=== PATIENT | male | born 1945 | race Caucasian/White ===

== ENCOUNTER 2020-04-23 10:11 | Outpatient (CLI) | payer MEDICARE, OTHER, SELFPAY ==
--- NOTE | ~2020-04-23 | XR_ITS ---
EXAMINATION: XR chest 2V DATE: 04/23/2020 10:55 INDICATION: Chest pain TECHNIQUE: PA and lateral views of the chest were obtained. COMPARISON: Chest radiograph dated 05/09/2019 FINDINGS: Minimal left basilar atelectasis. No other airspace opacities, pulmonary edema, pleural effusion or p neumothorax. The cardiomediastinal silhouette is normal. Visualized bones and soft tissues are unrema rkable. IMPRESSION: 1. Minimal left basilar atelectasis. Reviewed, dictated and finalized at location A.
[2020-04-23 10:29] LABS: Basophils Absolute Auto 0.07 K/mm3 (0.00-0.10); Basophils Percent Auto 0.9 % (0.0-1.0); Eosinophils Absolute Auto 0.68 K/mm3 (0.02-0.50); Eosinophils Percent Auto 9.1 % (1.0-6.0); Hematocrit 42.1 % (37.0-46.0); Hemoglobin 13.8 g/dL (12.4-15.3); Immature Granulocyte Absolute 0.03 K/mm3 (0.00-0.00); Immature Granulocyte Percent A 0.4 % (0.0-0.0); Lymphocytes Percent Auto 22.8 % (18.0-42.0); Mean Corpuscular HGB Conc 32.8 g/dL (32.0-36.0); Mean Corpuscular Hemoglobin 30.1 pg (27.0-31.0); Mean Corpuscular Volume 91.9 fL (78.0-102.0); Mean Platelet Volume 9.5 fl (8.7-11.0); Monocytes Absolute Auto 0.59 K/mm3 (0.10-0.90); Monocytes Percent Auto 7.9 % (2.0-11.0); Neutrophils Absolute Auto 4.4 K/mm3 (1.7-7.2); Neutrophils Percent Auto 58.9 % (50.0-70.0); Platelet Count Result 199 K/mm3 (150-420); Red Blood Count 4.58 M/mm3 (4.70-6.10); White Blood Count 7.5 K/mm3 (4.8-10.8)
[2020-04-23 10:55] LABS: Alanine Aminotransferase 29 U/L (16-63); Albumin Level 3.6 g/dL (3.4-5.0); Alkaline Phosphatase 106 U/L (46-116); Anion Gap 11.3 mmol/L (7-16); Aspartate Amino Transferase 20 U/L (15-37); Bilirubin,Total 0.4 mg/dL (0.00-1.00); Blood Urea Nitrogen 16 mg/dL (7-18); Calcium 8.8 mg/dL (8.5-10.1); Carbon Dioxide 29 mmol/L (21-32); Chloride 104 mmol/L (98-108); Creatine Kinase 89 U/L (39-308); Estimated Glomerular Filt Rate > 60; Glucose 193 mg/dL (70-99); Osmolality Calculated 296 mOsm/kg (285-295); Potassium 4.3 mmol/L (3.5-5.1); Sodium 140 mmol/L (136-145); Total Protein 8.1 g/dL (6.4-8.2)
[2020-04-23 11:00] LABS: Troponin I < 0.02 ng/mL (0.00-0.056)
== END 2020-04-23 10:12 | disposition home or self-care (01) ==
PROVIDERS: PCP Family Medicine; Visit Provider Family Medicine
DX: R07.89 Other chest pain (principal)
CPT/HCPCS: 36415; 71046; 80053; 82550; 82553; 84484; 85025

== ENCOUNTER 2020-07-22 07:59 | Outpatient (CLI) | payer MEDICARE, OTHER, SELFPAY ==
--- NOTE | ~2020-07-22 | US_ITS ---
EXAMINATION: US carotid duplex BI DATE: 07/22/2020 09:41 INDICATION: Subjective visual disturbance with floaters in the right eye. TECHNIQUE: Grayscale, color Doppler, and pulsed Doppler images of the cervical carotid arteries were obtained. The degree of vessel stenosis is placed in one of the following categories: normal, <50%, 5 0-69%, >=70% but less than near-occlusion, near-occlusion, or total occlusion. Note that percent sten osis relative to normal distal artery lumen diameter is indirectly measured from velocity measurement s as described by Kurt, et al. Radiology 2003; [id number]. COMPARISON: None. FINDINGS: RIGHT: The right common carotid artery (CCA) peak systolic velocity (PSV) is 122 cm/s. The right internal ca rotid artery (ICA) PSV is 123 cm/s. The right ICA end-diastolic velocity (EDV) is 23 cm/s. The right ICA/CCA PSV ratio is 1.0. Grayscale and color Doppler images yield an estimate of <50% diameter reduc tion from plaque in the ICA. The external carotid artery (ECA) PSV is 124 cm/s. There is antegrade fl ow in the right vertebral artery. LEFT: The left CCA PSV is 110 cm/s. The left ICA PSV is 108 cm/s. The left ICA EDV is 26 cm/s. The left ICA /CCA PSV ratio is 1.0. Grayscale and color Doppler images yield an estimate of <50% diameter reductio n from plaque in the ICA. The ECA PSV is 103 cm/s. There is antegrade flow in the left vertebral courtney ry. IMPRESSION: 1. <50% stenosis in the right internal carotid artery. 2. <50% stenosis in the left internal carotid artery. Reviewed, dictated and finalized at location B.
--- NOTE | ~2020-07-22 | US_ITS ---
EXAMINATION: US aorta [facility] DATE: 07/22/2020 09:41 INDICATION: Abdominal aortic aneurysm. TECHNIQUE: Grayscale, color Doppler, and pulsed Doppler images of the aorta and common iliac arteries were obtained. COMPARISON: None. FINDINGS: The proximal aorta measures 2.3 cm. The mid aorta measures 1.8 cm. The distal aorta measures 1.6 cm. The right common iliac artery measures 9 mm. The left common iliac artery measures 10 mm. IMPRESSION: 1. Normal caliber abdominal aorta. Reviewed, dictated and finalized at location B.
== END 2020-07-22 08:00 | disposition home or self-care (01) ==
LOC: CHSIMG 08:01
PROVIDERS: PCP Family Medicine; Visit Provider Internal Medicine Cardiovascular Disease
DX: Z13.6 Encounter for screening for cardiovascular disorders (principal); H53.9 Unspecified visual disturbance; E11.9 Type 2 diabetes mellitus without complications; Z87.891 Personal history of nicotine dependence; I10 Essential (primary) hypertension; I25.10 Atherosclerotic heart disease of native coronary artery without angina pectoris; E78.5 Hyperlipidemia, unspecified
CPT/HCPCS: 76706; 93880

== ENCOUNTER 2020-08-14 12:21 | Emergency (ER) | payer MEDICARE, OTHER, SELFPAY ==
--- NOTE | ~2020-08-14 | XR_ITS ---
EXAMINATION: XR wrist RT min 3V INDICATION: Right wrist pain TECHNIQUE: Four views of the right wrist are obtained. COMPARISON: None available FINDINGS: There is no fracture, dislocation, or subluxation. There is mild polyarticular osteoarthrit is. Wrist soft tissue swelling is present. IMPRESSION: 1. No acute osseous abnormality. Reviewed, dictated and finalized at location A. OR USER EXPERIENCE ARCHITECT
[2020-08-14 12:30] VITALS: BP 126/80; PULSE 77; RESP 14; TEMP 36.4; O2SAT 96
--- NOTE | 2020-08-14 12:47 | ED.UPPEXIN ---
HPI - Extremity Injury (Upper) General Chief Complaint: Extremity Injury, Upper Stated Complaint: fell and hurt R wrist Source: patient Mode of arrival: ambulatory Limitations: no limitations History of Present Illness HPI narrative: this is a 74-year-old gentleman that had a fall on an outstretched right hand and wrist that occurred yesterday has some abrasions to his palm and to his arm secondary to the fall, pain is minimal with with rest and more painful with movement has a strong brisk radial pulse on the right, has good range of motion although mildly tender with movement. Currently there is no swelling or bruising although there is abrasions of the right hand. complaint: injury to: right Onset (ago): day(s) Other Extremity Injury: Right: wrist ( Abrasions and pain with movement of his right wrist) Handedness: right Place: outdoors Severity: mild Severity scale (1-10): 4 Relieving factors: none Exacerbating factors: movement of extremity Context: fall Related Data Home Medications Medication Instructions Recorded Confirmed aspirin 81 mg PO EVERY OTHER DAY 08/14/20 08/14/20 atorvastatin 40 mg PO HS 08/14/20 08/14/20 finasteride 5 mg PO DAILY 08/14/20 08/14/20 losartan 12.5 mg PO DAILY 08/14/20 08/14/20 metformin 1,000 mg PO BID 08/14/20 08/14/20 omeprazole 20 mg PO DAILY 08/14/20 08/14/20 Allergies Allergy/AdvReac Type Severity Reaction Status Date / Time No Known Allergies Allergy Verified 08/14/20 12:49 Review of Systems Review of Systems: All systems reviewed & are unremarkable except as noted in HPI and below PMFSH Past Medical History Medical History Diabetes mellitus Family History Family History Other Diabetes mellitus Social History Social History Smoking status: Never smoker Alcohol intake: current Exam Const: General: no acute distress Orientation/consciousness: patient oriented x3 HENMT: Head: normal to inspection Eyes: Conjunctivae: conjunctivae normal Pupils: Equal, round and reactive pupils present Neck: Neck: normal visual inspection Chest: Chest palpation & inspection: normal inspection of the chest Resp: Effort & Inspection: normal respiratory effort Cardio: Rate: regular rate Rhythm: regular rhythm GI: GI Palp: Yes Soft to palpation : Testes: Testes normal Urinary Catheter: Urinary Catheter: patent and draining Back/Spine/Pelvis: Back: no CVA tenderness Skin: General skin exam: normal color Rashes: no rashes Neuro: General: patient oriented x3, moves all extremities, no meningeal signs and no focal motor deficits Extrem: Other: right wrist tender with movement and with palpation with a strong brisk radial pulse on the right with abrasions on his Psych: Mental Status: mental status grossly normal Course Course Emergency Course: reassessment of patient will update with tetanus vaccine, pain level is minimal at rest and declined any pain medication at this time. Vital Signs Vital signs: Vital Signs Temperature 36.4 C 08/14/20 12:30 Pulse Rate 77 08/14/20 12:30 Respiratory Rate 14 08/14/20 12:30 Blood Pressure 126/80 08/14/20 12:30 Pulse Oximetry 96 08/14/20 12:30 Temperature 36.4 C 08/14/20 12:30 Pulse Rate 77 08/14/20 12:30 Respiratory Rate 14 08/14/20 12:30 Blood Pressure 126/80 08/14/20 12:30 Pulse Oximetry 96 08/14/20 12:30 Critical Care Time Critical Care Time Critical Care Time: No Discharge Plan Discharge Prescriptions: No Action atorvastatin 40 mg tablet 40 mg PO HS RF: 0 metformin 500 mg tablet 1,000 mg PO BID RF: 0 aspirin 81 mg tablet,delayed release (DR/EC) 81 mg PO EVERY OTHER DAY RF: 0 losartan 25 mg tablet 12.5 mg PO DAILY RF: 0 omeprazole 20 mg capsule,delayed release(DR/EC)
[2020-08-14 12:50] VITALS: BP 126/80; PULSE 77; RESP 14; TEMP 36.4; O2SAT 96
--- NOTE | 2020-08-14 13:20 | PC.NURSE ---
PT REFUSING MITCH WRAP APPLICATION
[2020-08-14] MEDS: TETANUS,DIPHTHERIA,AC PERTUSSIS ADULT 0.5 ML (ADACEL) IM (13:27)
[2020-08-14 13:28] VITALS: RESP 15; O2SAT 100
== END 2020-08-14 13:29 | disposition home or self-care (01) ==
PROVIDERS: Emergency Provider Emergency Medicine; PCP Family Medicine
DX: S63.501A Unspecified sprain of right wrist, initial encounter (principal); W19.XXXA Unspecified fall, initial encounter
CPT/HCPCS: 73110; 90471; 90715; 99283

== ENCOUNTER 2021-05-03 11:31 | Outpatient (CLI) | payer MEDICARE, SELFPAY | END 2021-05-03 11:32 | disposition home or self-care (01) | LOC: CHSLAB 11:33 | PROVIDERS: PCP Family Medicine; Visit Provider Internal Medicine | DX: Z20.820 Contact with and (suspected) exposure to varicella (principal) | CPT/HCPCS: 36415; 86787 ==

== ENCOUNTER 2021-11-14 14:28 | Outpatient (CLI) | payer MEDICARE, OTHER, SELFPAY ==
--- NOTE | ~2021-11-14 | XR_ITS ---
EXAMINATION: XR hand RT min 3V DATE: 11/14/2021 14:51 INDICATION: Pain in the right fingers. TECHNIQUE: 3 views of right hand were obtained. COMPARISON: Right wrist radiographs 08/14/2020 FINDINGS: Bone alignment is normal. No fracture. There is mild osteoarthritis of triscaphe joint, fir st carpometacarpal joint, and third and fourth metacarpophalangeal joints. There is moderate osteoart hritis of first and second metacarpophalangeal joints. There is mild osteoarthritis of most of the in terphalangeal joints and moderate osteoarthritis of second distal interphalangeal joint. IMPRESSION: 1. Polyarticular osteoarthritis. Reviewed, dictated and finalized at location E. NCIAL CONSULTANT
== END 2021-11-14 14:29 | disposition home or self-care (01) ==
PROVIDERS: PCP Family Medicine; Visit Provider Family Medicine
DX: M79.644 Pain in right finger(s) (principal)
CPT/HCPCS: 73130

== ENCOUNTER 2022-05-01 00:42 | Day surgery (SDC) | payer MEDICARE, OTHER, SELFPAY ==
[2022-04-18 12:28] VITALS: BMI 23.6
--- NOTE | 2022-04-30 12:09 | P.HP_ITS ---
History of Present Illness History of Present Illness Consent: Risks, benefits, and alternatives have been discussed and questions answered. Patient agrees to proceed with procedure. Chief complaint: neoplasm screening Narrative: Denis Santana Sr. is a 76 year old male Who was referred for colon cancer screening. Review of Systems Review of Systems: All systems reviewed & are unremarkable except as noted in HPI and below PMFSH Past Medical History Medical History Diabetes mellitus HTN (hypertension) Hyperlipidemia Osteoarthritis Prostate CA Family History Family History Other Diabetes mellitus Social History Social History Smoking packs per day: 0.5 Smoking cigarettes per day: 10.0 Years smoked: 20 Smoking pack-years: 10.00 Smoking status: Former smoker Tobacco type: cigarettes Alcohol intake: never Substance use: never Substance use type: does not use Living arrangements: with family Spiritual care concerns: No Meds Home Medications and Allergies Home Medications Medication Instructions Recorded Confirmed Type aspirin 81 mg tablet,delayed 81 mg PO EVERY OTHER DAY 08/14/20 05/01/22 History release atorvastatin 40 mg tablet 40 mg PO HS 08/14/20 05/01/22 History finasteride 5 mg tablet 5 mg PO DAILY 08/14/20 05/01/22 History losartan 25 mg tablet 12.5 mg PO DAILY 08/14/20 05/01/22 History metformin 500 mg tablet 1,000 mg PO BID 08/14/20 05/01/22 History omeprazole 20 mg capsule,delayed 20 mg PO DAILY 08/14/20 05/01/22 History release Allergies Allergy/AdvReac Type Severity Reaction Status Date / Time No Known Allergies Allergy Verified 05/01/22 09:31 Exam Const: General: alert Orientation/consciousness: patient oriented x3 Resp: Auscultation: clear to auscultation bilaterally Cardio: Rhythm: regular rhythm GI: GI Palp: Yes Soft to palpation and No Tenderness to palpation present (GI) Neuro: General: patient oriented x3 Assessment and Plan Assessment and plan (1) Colon cancer screening: Code(s): Z12.11 - Encounter for screening for malignant neoplasm of colon Status: Acute Assessment and Plan: Colonoscopy with possible biopsy or polypectomy or cautery or injection of sub stances.
--- NOTE | 2022-05-01 09:13 | P.PNAN_ITS ---
Anes - Initial Pre Proc Eval Procedure: Operation Date: 05/01/22 10:30 Proposed Procedures p Screening Colonoscopy - Gaurav Chandler MD Date/Time: 05/01/22 09:13 Surgeon: Gaurav Chandler MD Pre Op Diagnosis: neoplasm screening Patient Data Age: 76 Gender: M Height: 1.75 m Weight: 72.5 kg Allergies Allergy/AdvReac Type Severity Reaction Status Date / Time No Known Allergies Allergy Verified 05/01/22 09:31 Home Medications Medication Instructions Recorded Confirmed Type aspirin 81 mg tablet,delayed 81 mg PO EVERY OTHER DAY 08/14/20 04/18/22 History release atorvastatin 40 mg tablet 40 mg PO HS 08/14/20 04/18/22 History finasteride 5 mg tablet 5 mg PO DAILY 08/14/20 04/18/22 History losartan 25 mg tablet 12.5 mg PO DAILY 08/14/20 04/18/22 History metformin 500 mg tablet 1,000 mg PO BID 08/14/20 04/18/22 History omeprazole 20 mg capsule,delayed 20 mg PO DAILY 08/14/20 04/18/22 History release Patient hx anesthesia problems: none Family hx anesthesia problems: none Results Review: All pre-operative results and documents have been reviewed as part of the pre- operative evaluation. [facility] Past Medical History Medical History (Updated 05/01/22 @ 09:13 by Romeo Zaman MD) Diabetes mellitus HTN (hypertension) Hyperlipidemia Osteoarthritis Prostate CA Family History Family History Other Diabetes mellitus Social History Social History Smoking packs per day: 0.5 Smoking cigarettes per day: 10.0 Years smoked: 20 Smoking pack-years: 10.00 Smoking status: Former smoker Tobacco type: cigarettes Alcohol intake: never Substance use: never Substance use type: does not use Living arrangements: with family Spiritual care concerns: No Anes - Eval Final PreProcedure Day of Procedure 05/01/22 09:13 Patient weight: normal Heart: regular rate and rhythm Lungs: clear to auscultation and normal air movement Airway: Mallampati scale class II Neurological: alert and oriented Last oral intake: >/= 8 hours ASA classification: III Emergent: no Anesthetic plan: proceed Anesthesia type and monitoring: general GIVS Results Review: All pre-operative results and documents have been reviewed as part of the pre- operative evaluation. Informed Consent: The patient's anesthetic plan and its attendant risks and benefits were discussed with the patient/family/POA. Questions were solicited and answers provided to the satisfaction of the patient/family/POA.
[2022-05-01 09:32] VITALS: BP 144/68; PULSE 60; RESP 18; TEMP 36.2; O2SAT 99
[2022-05-01] MEDS: LACTATED RINGERS 1,000 ML 150 ML IV CONT (09:42)
[2022-05-01 09:43] LABS: Glucose Point of Care 113 mg/dl (65-105)
[2022-05-01 10:40] VITALS: BP 116/75; PULSE 56; RESP 20; O2SAT 97
[2022-05-01 10:46] VITALS: BP 119/68; PULSE 56; RESP 20; O2SAT 100
[2022-05-01 10:56] VITALS: BP 125/71; PULSE 53; RESP 21; O2SAT 100
== END 2022-05-01 11:06 | disposition home or self-care (01) ==
PROVIDERS: PCP Family Medicine; Visit Provider Internal Medicine Gastroenterology
PROC: 0DJD8ZZ Inspection of Lower Intestinal Tract, Via Natural or Artificial Opening Endoscopic (ICD-10-PCS; CPT 45378; principal; 2022-05-01 10:30)
DX: Z12.11 Encounter for screening for malignant neoplasm of colon (principal); K57.30 Diverticulosis of large intestine without perforation or abscess without bleeding; K64.8 Other hemorrhoids; Z79.82 Long term (current) use of aspirin; Z79.84 Long term (current) use of oral hypoglycemic drugs; E11.9 Type 2 diabetes mellitus without complications; I10 Essential (primary) hypertension; E78.5 Hyperlipidemia, unspecified; M19.90 Unspecified osteoarthritis, unspecified site; Z85.46 Personal history of malignant neoplasm of prostate; Z87.891 Personal history of nicotine dependence
CPT/HCPCS: G0121; 82948; J2704; J7120

== ENCOUNTER 2022-09-12 15:50 | Emergency (ER) | payer MEDICARE, OTHER, SELFPAY ==
[2022-09-12] VITALS (28 sets, daily range): BP systolic 102–140; BP diastolic 68–82; PULSE 55–98; RESP 15–29; TEMP 36.6; O2SAT 93–99
--- NOTE | ~2022-09-12 | XR_ITS ---
EXAMINATION: XR chest 1V portable 09/12/2022 16:30 INDICATION: Left-sided chest pain. PROCEDURE: AP portable chest COMPARISON: Comparison to multiple prior studies sequentially, with oldest reviewed study dated 05/2019. FINDINGS: The lungs are clear. The cardiomediastinal silhouette is within normal limits. There are no pleural effusions. There is no pneumothorax suspected. IMPRESSION: 1: NO ACUTE CARDIOPULMONARY DISEASE. Reviewed, dictated and finalized at location A. ERTY MANAGER
--- NOTE | 2022-09-12 15:59 | ECG_ITS ---
Measurements Intervals [place] Rate: 62 P: 0 FL: 153 QRS: 24 QRSD: 98 T: 54 QT: 415 QTc: 424 Interpretive Statements SINUS RHYTHM NORMAL ECG NO PREVIOUS ECG AVAILABLE FOR COMPARISON Electronically Signed On 09-13-2022 15:29:56 DEMURRAGE MAN by Micheal Sanchez M.D.
[2022-09-12 16:27] LABS: Basophils Absolute Auto 0.09 K/mm3 (0.00-0.10); Basophils Percent Auto 1.2 % (0.0-1.0); Eosinophils Absolute Auto 0.75 K/mm3 (0.02-0.50); Eosinophils Percent Auto 10.1 % (1.0-6.0); Hematocrit 38.6 % (37.0-46.0); Hemoglobin 12.8 g/dL (12.4-15.3); Immature Granulocyte Absolute 0.02 K/mm3 (0.00-0.00); Immature Granulocyte Percent A 0.3 % (0.0-0.0); Lymphocytes Absolute Auto 1.82 K/mm3 (1.10-4.50); Lymphocytes Percent Auto 24.5 % (18.0-42.0); Mean Corpuscular HGB Conc 33.2 g/dL (32.0-36.0); Mean Corpuscular Volume 90.4 fL (78.0-102.0); Mean Platelet Volume 9.3 fl (8.7-11.0); Monocytes Absolute Auto 0.74 K/mm3 (0.10-0.90); Neutrophils Percent Auto 53.9 % (50.0-70.0); Platelet Count Result 206 K/mm3 (150-420); Red Blood Count 4.27 M/mm3 (4.70-6.10); Red Cell Distribution Width 11.7 % (11.6-14.4); White Blood Count 7.4 K/mm3 (4.8-10.8)
[2022-09-12 16:29] LABS: Appearance Urine Clear (Clear); Bilirubin Urine Negative (Negative); Blood Urine 2+ (Negative); Glucose Urine UA Negative (Negative); Ketones Urine Negative (Negative); Leukocyte Esterase Ur Negative LEU/UL (Negative); Nitrate Urine Negative (Negative); Protein Urine Negative (Negative); Specific Grav Ur <= 1.005 (1.010-1.020); Urobilinogen Urine 0.2 mg/dL (0.2-1.0)
[2022-09-12] MEDS: ASPIRIN 81 MG CHEWABLE TABLET 324 MG PO (16:39)
[2022-09-12] MEDS: NITROGLYCERIN SL 0.4 MG TABLET SUBLINGUAL (16:40)
[2022-09-12 16:46] LABS: Lactic Acid Reflex 0.9 mmol/L (0.4-2.0)
--- NOTE | 2022-09-12 16:48 | PC.NURSE ---
PT REPORTS HE IS PAIN FREE, REFUSES MORPHINE, ZOFRAN BP 125/67, HOLDING METOPROLOL PER ERP ORDER.
[2022-09-12 16:51] LABS: Add Urine Microscopic? YES; Alanine Aminotransferase 27 U/L (16-63); Albumin Level 3.6 g/dL (3.4-5.0); Alkaline Phosphatase 114 U/L (46-116); Anion Gap 9 mmol/L (8-16); Aspartate Amino Transferase 18 U/L (15-37); Bacteria Urine Trace /hpf; Bilirubin,Total 0.4 mg/dL (0.00-1.00); Blood Urea Nitrogen 18 mg/dL (7-18); Calcium 8.6 mg/dL (8.5-10.1); Carbon Dioxide 27 mmol/L (21-32); Chloride 106 mmol/L (98-108); Color Urine Light Yellow (Yellow); Estimated CRCL calculation 56 ml/min; Estimated Glomerular Filt Rate > 60; Glucose 88 mg/dL (70-99); NT Pro B Type Natriuretic Pept 34 pg/mL (0-125); Osmolality Calculated 294 mOsm/kg (285-295); Potassium 3.9 mmol/L (3.5-5.1); Sodium 142 mmol/L (136-145); Squamous Epithelial Cell Urine Rare /hpf (Few); Total Protein 7.6 g/dL (6.4-8.2); Troponin I 4.8 ng/L (0.00-60.4); WBC Urine None seen /hpf (0-3)
[2022-09-12 16:52] LABS: Amphetamine Screen Urine Negative (Negative); Barbiturate Screen Urine Negative (Negative); Benzodiazepines Screen Urine Negative (Negative); Cannabinoid Screen Urine Negative (Negative); Cocaine Screen Urine Negative (Negative); Methadone Screen Urine Negative (Negative); Opiate Screen Urine Negative (Negative); Phencyclidine Screen Urine Negative (Negative)
--- NOTE | 2022-09-12 18:02 | PC.NURSE ---
PT IS RESTING ON STRETCHER, NAD NOTED. PT DENIES ANY PAIN, NEEDS, OR COMPLAINTS. AT BEDSIDE. PT IS AWAITING REPEAT TROPONIN AT THIS TIME. WILL CONTINUE TO MONITOR.
[2022-09-12 19:30] LABS: Troponin I 5.8 ng/L (0.00-60.4)
--- NOTE | 2022-09-12 19:44 | ED.CHESTPAIN ---
HPI - Chest Pain General Chief Complaint: Chest Pain Stated Complaint: neck pain, numb jaw, pain in left arm, chest pains Time Seen by Provider: 09/12/22 15:53 Source: patient and RN notes reviewed Mode of arrival: ambulatory Limitations: no limitations History of Present Illness complaint: chest pain Onset (ago): hour(s) (4) Timing of current episode: constant Prior episodes: Yes Pain location: substernal and left chest Pain radiation: left arm Severity: moderate Pain scale (0-10): 5 Quality: aching and dull Relieving factors: nothing Exacerbating factors: nothing Associated symptoms: nausea Treatment prior to arrival: none Risk Factors Coronary artery disease risk factors: diabetes, smoking history, hyperlipidemia and hypertension Related Data Home Medications Medication Instructions Recorded Confirmed atorvastatin 40 mg tablet 40 mg PO HS 08/14/20 09/12/22 finasteride 5 mg tablet 5 mg PO DAILY 08/14/20 09/12/22 losartan 25 mg tablet 12.5 mg PO DAILY 08/14/20 09/12/22 metformin 500 mg tablet 1,000 mg PO BID 08/14/20 09/12/22 Allergies Allergy/AdvReac Type Severity Reaction Status Date / Time No Known Allergies Allergy Verified 09/12/22 16:03 [facility] Past Medical History Medical History Chest pain Diabetes mellitus HTN (hypertension) Hyperlipidemia Osteoarthritis Prostate CA Family History Family History Other Diabetes mellitus Social History Social History Smoking packs per day: 0.5 Smoking cigarettes per day: 10.0 Years smoked: 20 Smoking pack-years: 10.00 Smoking status: Former smoker Tobacco type: cigarettes Alcohol intake: never Substance use: never Substance use type: does not use Spiritual care concerns: No Exam Const: General: no acute distress and well nourished Nutritional Appearance: well nourished Orientation/consciousness: patient oriented x3 Limitations: no limitations HENMT: Head: normal to inspection Ears: external ears normal, TM's normal bilaterally and EAC's normal Face/Nose/Sinus: Normal external nose present, Normal nares present, normal facial exam and sinuses nontender Face and sinus: normal facial exam and sinuses nontender Mouth: Yes Normal oral and palatal mucosa present and Yes moist mucous membranes Teeth and gingiva: dentition normal Throat: posterior oropharynx normal Eyes: Conjunctivae: conjunctivae normal Pupils: Equal, round and reactive pupils present EOM: EOMs intact bilaterally Neck: Neck: normal visual inspection, no lymphadenopathy and no meningeal signs Chest: Chest palpation & inspection: normal inspection of the chest Resp: Effort & Inspection: normal respiratory effort Auscultation: clear to auscultation bilaterally Cardio: Rate: regular rate Rhythm: regular rhythm GI: GI Palp: Yes Soft to palpation and No Tenderness to palpation present (GI) Auscultation: normal bowel sounds : General: Yes bladder normal to palpation and Yes no CVA tenderness Back/Spine/Pelvis: Back: no CVA tenderness Skin: General skin exam: normal color Rashes: no rashes Wounds: no wounds Neuro: General: patient oriented x3, moves all extremities, no meningeal signs, no focal motor deficits and CN's II-XI intact bilaterally Cranial nerves: Yes Equal, round and reactive pupils present and Yes Nystagmus not present Speech: normal speech Gait exam (Neuro): Normal gait present Extrem: General: normal to inspection and no pedal edema Psych: Mental Status: mental status grossly normal Affect: normal affect Attitude: cooperative Course Course Emergency Course: stable, less painful Reevaluation(s) Reevaluation #1: VSS Date: 09/12/22 Time: 16:49 Vital Signs Vital signs: Vital Signs Pulse Rate 64 09/12/22 16:00 Oxygen Delivery Room Air 09/12/22 16:00
== END 2022-09-12 20:06 | disposition home or self-care (01) ==
PROVIDERS: Emergency Provider Emergency Medicine; PCP Family Medicine
DX: R07.89 Other chest pain (principal); E11.9 Type 2 diabetes mellitus without complications; I10 Essential (primary) hypertension; E78.5 Hyperlipidemia, unspecified; Z85.46 Personal history of malignant neoplasm of prostate; Z87.891 Personal history of nicotine dependence; Z79.899 Other long term (current) drug therapy
CPT/HCPCS: 36415; 71045; 80053; 80307; 81001; 83605; 83880; 84484; 85025; 93005; 99284; A9270

== ENCOUNTER 2022-09-25 08:17 | Outpatient (CLI) | payer MEDICARE, OTHER, SELFPAY ==
--- NOTE | 2022-09-25 14:21 | WPDCARIOSTRE ---
Nuclear Stress Test INDICATIONS Indications: Chest pain PROCEDURE Procedure Performed: Myocardial Perf Spect-Multi Procedure: Patient underwent a lexiscan stress test and immediately was injected with 26.8 mCi of cardiolyte. Multiple tomographic images were obtained. These are of good quality. There is no evidence of perfusion defects with stress imaging. A separate resting images were obtained after patient was injected with 10.1 mCi of cardiolyte. Multiple tomographic images were obtained. These are of good quality. There is no evidence of perfusion defects with rest imaging. CONCLUSION Conclusion: 1. Normal myocardial perfusion imaging demonstrating no perfusion defects with stress or rest imaging. 2. No reversible ischemia. 3. Left ventriculogram demonstrates normal ejection fraction of 59% with no wall motion abnormalities. 4. TID score 1.02 is normal.
== END 2022-09-25 08:18 | disposition home or self-care (01) ==
PROVIDERS: PCP Family Medicine; Visit Provider Internal Medicine Cardiovascular Disease
DX: R07.9 Chest pain, unspecified (principal); I25.10 Atherosclerotic heart disease of native coronary artery without angina pectoris; I10 Essential (primary) hypertension; R06.02 Shortness of breath; T73.3XXA Exhaustion due to excessive exertion, initial encounter
CPT/HCPCS: 78452; 93017; A9502; J2785

== ENCOUNTER 2022-10-03 15:02 | Outpatient (CLI) | payer MEDICARE, OTHER, SELFPAY ==
--- NOTE | ~2022-10-03 | XR_ITS ---
EXAMINATION: XR shoulder LT min 2V INDICATION: Chronic left shoulder pain TECHNIQUE: Four views of the left shoulder are submitted. COMPARISON: 04/03/2016 FINDINGS: Normal alignment. No fracture. There is mild osteoarthritis of the glenohumeral joint and m oderate osteoarthritis of the acromioclavicular joint. Soft tissues are unremarkable. IMPRESSION: 1. Osteoarthritis without acute osseous abnormality Reviewed, dictated and finalized at location L. ENGINEER
== END 2022-10-03 15:03 | disposition home or self-care (01) ==
LOC: CHSIMG 15:05
PROVIDERS: PCP Family Medicine; Visit Provider Family Medicine
DX: M25.512 Pain in left shoulder (principal); M19.012 Primary osteoarthritis, left shoulder
CPT/HCPCS: 73030

== ENCOUNTER 2022-10-06 15:58 | Outpatient (RCR) | payer MEDICARE, OTHER, SELFPAY ==
--- NOTE | 2022-10-06 17:01 | PTOPEVAL1 ---
Assessment and note entered by Evelyn Scott DPT Evaluation Information Assessment Status Evaluation Diagnosis L shoulder pain Onset 10/04/22 Subjective Information Pt reports that left shoulder pain has been occurring for the last few years with insidious onset but has been getting worse over the last 2 months. Pt reports that sleep seems to be the most affected right now as it wakes him up frequently during the night. He likes to sleep on his side but has pain sleeping on either side. He reports that occasionally his shoulder feels cold and it pops a lot. Denies N/T. He reports difficulty with lifting his arm overhead, out to the side, and forward, as well as reaching behind his back. He notes that in his childhood and with work, he has been very active with his shoulders. He reports that he cannot seem to find pain relief. He reports that his Xray on his shoulder revealed OA. He reports that he is able to do all functional and recreational activities still, he has to be more careful and has pain. He is to follow up with his MD in about a month. Reported Pain Level Pain Score 0: Self Report Assessment PT Clinical Summary Pt presents to PT with L shoulder pain and demonstrates decreased strength, decreased range of motion, and decreased mobility. He presents with signs and symptoms consistent with potential differential diagnosis of shoulder impingement or biceps involvement. 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 He was provided with an HEP focused on improving mobility and shoulder stability within his tolerance. He will benefit from skilled PT to facilitate symptom relief, improve the aforementioned impairments, and return to functional and recreational activity participation. Plan of Care Interventions Electrical Stimulation,Hot Pack/Cold Pack,Manual Therapy,Patient/Caregiver Educati,Therapeutic Activities,Therapeutic Exercise PT Services Indicated Yes Treatment Frequency and 2x week for 8 visits Duration These treatments will address the objective and functional deficits as defined above. The patient will be advanced safely and appropriately in order for the patient to progress towards his/her prior level of function. Additional exercises will
== END 2022-10-30 16:15 | disposition home or self-care (01) ==
LOC: CHSPT 15:58
PROVIDERS: PCP Family Medicine; Visit Provider Family Medicine
DX: M25.512 Pain in left shoulder (principal)
CPT/HCPCS: 97014; 97110; 97161; G0283

== ENCOUNTER 2023-10-29 22:26 | Emergency (ER) | payer MEDICARE, OTHER, SELFPAY ==
--- NOTE | ~2023-10-29 | XR_ITS ---
EXAMINATION: XR shoulder RT min 2V DATE: 10/29/2023 22:50 INDICATION: Right shoulder pain. Fall. TECHNIQUE: 4 views of right shoulder were obtained. COMPARISON: Right humerus radiographs 05/01/2019 FINDINGS: Bone alignment is normal. No fracture. There is mild osteoarthritis of glenohumeral joint a nd severe osteoarthritis of acromioclavicular joint. IMPRESSION: 1. Polyarticular osteoarthritis. Reviewed, dictated and finalized at location E. [facility]
[2023-10-29 22:26] VITALS: BP 155/84; PULSE 71; RESP 20; TEMP 36.9; O2SAT 96
--- NOTE | 2023-10-29 22:30 | ED.UPPEXIN ---
HPI - Extremity Injury (Upper) General Chief Complaint: Extremity Injury, Upper Stated Complaint: fall, shoulder injury Source: patient Mode of arrival: ambulatory Limitations: no limitations History of Present Illness HPI narrative: 77 year old male presents to the Emergency Department complaining of right shoulder pain. Patient states he fell and landed on right shoulder approximately 30 minutes ago. Denies any other injury. Denies striking head, loss of consciousness or other injury. complaint: injury to: right Onset (ago): minute(s) (30) Other Extremity Injury: Right: shoulder Other injuries: none Place: home Severity: moderate Relieving factors: none Exacerbating factors: movement of extremity Context: fall Associated symptoms: denies other symptoms Related Data Home Medications Medication Instructions Recorded Confirmed atorvastatin 40 mg tablet 40 mg PO HS 08/14/20 09/12/22 finasteride 5 mg tablet 5 mg PO DAILY 08/14/20 09/12/22 losartan 25 mg tablet 12.5 mg PO DAILY 08/14/20 09/12/22 metformin 500 mg tablet 1,000 mg PO BID 08/14/20 09/12/22 Allergies Allergy/AdvReac Type Severity Reaction Status Date / Time No Known Allergies Allergy Verified 09/12/22 16:03 Review of Systems Review of Systems: All systems reviewed & are unremarkable except as noted in HPI and below Constitutional: Constitutional: Reports as per HPI Eyes: Eyes: Reports as per HPI ENT: Reports system reviewed and no additional complaints, except as documented Cardiovascular: Cardiovascular: Reports as per HPI Respiratory: Respiratory: Reports as per HPI Gastrointestinal: Gastrointestinal: Reports as per HPI Musculoskeletal: Musculoskeletal: Reports no additional musculoskeletal complaints and Reports arthralgias (right shoulder) Neurologic: Reports system reviewed and no additional complaints, except as documented and Denies numbness PMFSH Past Medical History Medical History Chest pain Diabetes mellitus HTN (hypertension) Hyperlipidemia Osteoarthritis Prostate CA Family History Family History Other Diabetes mellitus Social History Social History Smoking packs per day: 0.5 Smoking cigarettes per day: 10.0 Years smoked: 20 Smoking pack-years: 10.00 Smoking status: Former smoker Tobacco type: cigarettes Alcohol intake: never Substance use: never Substance use type: does not use Living arrangements: with family Spiritual care concerns: No Exam Const: General: healthy appearing Nutritional Appearance: well nourished Orientation/consciousness: patient oriented x3 Limitations: no limitations HENMT: Head: normal to inspection Ears: external ears normal Face/Nose/Sinus: Normal external nose present Face and sinus: normal facial exam Mouth: Yes Normal oral and palatal mucosa present Eyes: Conjunctivae: conjunctivae normal Pupils: Equal, round and reactive pupils present EOM: EOMs intact bilaterally Direct Ophthalmoscopy: no photophobia Neck: Neck: normal visual inspection Chest: Chest palpation & inspection: normal inspection of the chest Resp: Effort & Inspection: normal respiratory effort Cardio: Rate: regular rate Rhythm: regular rhythm GI: Inspection: non-distended GI Palp: Yes Soft to palpation and No Tenderness to palpation present (GI) Back/Spine/Pelvis: Back: no CVA tenderness Skin: General skin exam: normal color Rashes: no rashes Wounds: no wounds Neuro: General: patient oriented x3 and moves all extremities Cranial nerves: Yes Nystagmus not present Speech: normal speech Gait exam (Neuro): Normal gait present Other: grossly normal Extrem: General: normal to inspection Other: tender right proximal humeral head Psych: Mental Status: mental status grossly normal Course Cours
[2023-10-29] MEDS: HYDROcodone/acetaminophen (*CRX) 10-325 MG TABLET 1 TAB PO (23:09)
== END 2023-10-29 23:14 | disposition home or self-care (01) ==
PROVIDERS: Emergency Provider Emergency Medicine; PCP Family Medicine
DX: S40.011A Contusion of right shoulder, initial encounter (principal); S46.911A Strain of unspecified muscle, fascia and tendon at shoulder and upper arm level, right arm, initial encounter; E11.9 Type 2 diabetes mellitus without complications; I10 Essential (primary) hypertension; E78.5 Hyperlipidemia, unspecified; Z85.46 Personal history of malignant neoplasm of prostate; Z87.891 Personal history of nicotine dependence; W19.XXXA Unspecified fall, initial encounter; Y92.009 Unspecified place in unspecified non-institutional (private) residence as the place of occurrence of the external cause
CPT/HCPCS: 73030; 99283; A4565; A9270

== ENCOUNTER 2023-11-06 08:27 | Outpatient (RCR) | payer MEDICARE, OTHER, SELFPAY ==
[2023-11-06 08:35] VITALS: BP_SYST 142
--- NOTE | 2023-11-06 09:30 | OPREHPOC ---
Outpatient Therapy Plan of Care This is a Multidisciplinary Plan of Care that may contain components documented by all disciplines (PT, OT, and ST.) PT Problem 1 PT Problem #1 Knowledge Deficit PT Goal 1 Goal Patient to demonstrate independence with HEP Target Visit 4 PT Problem 2 PT Problem #2 Pain PT Goal 1 Goal 1. patient to report highest pain at 2/10 2. patient to report no sleep disturbance due to R shoulder pain Target Visit 8 PT Problem 3 PT Problem #3 Impaired Range of Motion PT Goal 1 Goal Patient to demonstrate 160 deg of R shoulder flexion to improve ability to reach into cabinets for house hold tasks Target Visit 8 PT Problem 4 PT Problem #4 Impaired Strength PT Goal 1 Goal Patient to demonstrate 4+/5 R shoulder strength to return to lifting for house hold tasks Target Visit 8 PT Problem 5 PT Problem #5 Impaired Functional Mobil PT Goal 1 Goal 1. Patient to demonstrate 20% improvement on QuickDash 2. Patient to report ability to dress with no increase in R shoulder pain Target Visit 8
--- NOTE | 2023-11-06 09:30 | PTOPEVAL1 ---
Assessment and note entered by Destiny Braxton DPT Evaluation Information Assessment Status Evaluation Diagnosis R shoulder pain Onset 11/01/23 Subjective Information Patient reports on 10/29/23 he slipped and fell on the ice and caught himself with his R arm. He reports he has had pain since. He had a negative x -ray but has not had an MRI. Patient reports raising his arm, dressing and completing house hold tasks. Patient is retired. He reports he has not tried ice but ibuprofen has been helping with pain control. Reported Pain Level Pain Score 0: Self Report Assessment PT Clinical Summary Mr. Santana is a 77 year old male who presents to PT with R shoulder pain. Patient demonstrates decreased R shoulder strength, decreased R shoulder ROM and positive painful arc and drop arm test. He has ddiculty with reaching over head, dressing, and completing house hold tasks. He would benefit from skilled PT to address impairments and return to PLOF. Plan of Care Interventions Electrical Stimulation,Hot Pack/Cold Pack,Manual Therapy,Neuro Re-education,Patient/Caregiver Educati,Therapeutic Activities,Therapeutic Exercise PT Services Indicated Yes Treatment Frequency and 2x weekly for 8 visits Duration These treatments will address the objective and functional deficits as defined above. The patient will be advanced safely and appropriately in order for the patient to progress towards his/her prior level of function. Additional exercises will be introduced and as well as a comprehensive home exercise program upon discharge, if needed, ?to ensure carryover of functional gains achieved in the clinic. This treatment plan has been reviewed and agreement upon by the patient.
[2023-12-04 13:50] VITALS: BP_SYST 140
--- NOTE | 2023-12-04 14:40 | OPREHPOC ---
Outpatient Therapy Plan of Care This is a Multidisciplinary Plan of Care that may contain components documented by all disciplines (PT, OT, and ST.) PT Problem 1 PT Problem #1 Knowledge Deficit PT Goal 1 Goal Patient to demonstrate independence with HEP Target Visit 4 Progress Met PT Problem 2 PT Problem #2 Pain PT Goal 1 Goal 1. patient to report highest pain at 2/10 2. patient to report no sleep disturbance due to R shoulder pain Target Visit 14 Progress Not Met PT Problem 3 PT Problem #3 Impaired Range of Motion PT Goal 1 Goal Patient to demonstrate 160 deg of R shoulder flexion to improve ability to reach into cabinets for house hold tasks Target Visit 14 Progress Partially Met PT Problem 4 PT Problem #4 Impaired Strength PT Goal 1 Goal Patient to demonstrate 4+/5 R shoulder strength to return to lifting for house hold tasks Target Visit 14 Progress Partially Met PT Problem 5 PT Problem #5 Impaired Functional Mobil PT Goal 1 Goal 1. Patient to demonstrate 20% improvement on QuickDash 2. Patient to report ability to dress with no increase in R shoulder pain Target Visit 14 Progress Partially Met
--- NOTE | 2023-12-04 14:41 | PTOPREEVAL ---
Assessment and note entered by JT File, PT Evaluation Information Assessment Status Re-evaluation Diagnosis R shoulder pain Onset 11/01/23 Subjective Information patient reports he still has difficulty with raising the arm up. he reports he is unable to reach into cabinets with the R arm/hand. he reports he has little pain this afternoon. he reports since the injury it is a lot better. he reports he would like to follow up with the MD regarding talks about an MRI. Reported Pain Level Pain Score 3: Self Report Assessment PT Clinical Summary mr. kc presents to skilled PT for his 8th skilled therapy visit for R shoulder pain. up to this point, his therapy has consisted of pain reducing modalities, and strengthening and rom exercises. he presents with improved R shoulder passive and active rom and improved R shoulder strength. however, he continues to present with weakness of the shoulder, deficits in rom, and deficits in functional lifting performance. he continues to have unmet goals in skilled PT, and would benefit from continued skilled PT to address these goals and his objective/functional deficits . Plan of Care Interventions Electrical Stimulation,Hot Pack/Cold Pack,Manual Therapy,Neuro Re-education,Patient/Caregiver Educati,Therapeutic Activities,Therapeutic Exercise PT Services Indicated Yes Treatment Frequency and continue skilled PT 2x weekly for 6 more visits Duration These treatments will address the objective and functional deficits as defined above. The patient will be advanced safely and appropriately in order for the patient to progress towards his/her prior level of function. Additional exercises will be introduced and as well as a comprehensive home exercise program upon discharge, if needed, ?to ensure carryover of functional gains achieved in the clinic. This treatment plan has been reviewed and agreement upon by the patient.
[2023-12-25 13:00] VITALS: BP_SYST 160
--- NOTE | 2023-12-25 13:39 | OPREHPOC ---
Outpatient Therapy Plan of Care This is a Multidisciplinary Plan of Care that may contain components documented by all disciplines (PT, OT, and ST.) PT Problem 1 PT Problem #1 Knowledge Deficit PT Goal 1 Goal Patient to demonstrate independence with HEP Target Visit 4 Progress Met PT Problem 2 PT Problem #2 Pain PT Goal 1 Goal 1. patient to report highest pain at 2/10 -not met 2. patient to report no sleep disturbance due to R shoulder pain -met Target Visit 14 Progress Partially Met PT Problem 3 PT Problem #3 Impaired Range of Motion PT Goal 1 Goal Patient to demonstrate 160 deg of R shoulder flexion to improve ability to reach into cabinets for house hold tasks Target Visit 14 Progress Not Met PT Problem 4 PT Problem #4 Impaired Strength PT Goal 1 Goal Patient to demonstrate 4+/5 R shoulder strength to return to lifting for house hold tasks Target Visit 14 Progress Not Met PT Problem 5 PT Problem #5 Impaired Functional Mobil PT Goal 1 Goal 1. Patient to demonstrate 20% improvement on QuickDash 2. Patient to report ability to dress with no increase in R shoulder pain Target Visit 14 Progress Not Met
--- NOTE | 2023-12-25 13:39 | PTOPDC ---
Assessment and note entered by Shantelle Parrish, PT Evaluation Information Assessment Status Discharge Diagnosis R shoulder pain Onset 11/01/23 Subjective Information Denis Santana reports his right shoulder is doing much better and not as painful. He does note ongoing weakness when he tries to lift items over his head. He also notes he is uncoordinated with trying to buckle his belt. He plans to call Dr. Vernon and get an appointment with him regarding ongoing weakness. Reported Pain Level Pain Score 2: Self Report Assessment PT Clinical Summary Denis Santana has completed 14 skilled PT visits for right shoulder pain. He is reporting less pain and improved mobility in the right shoulder however, he does still have diffficulty lifting items past shoulder height. He objectively demonstrates improved right shoulder active and passive ROM. He continues to demonstrate weakness in the right shoulder muscles, decreased right shoulder AROM, and positive special tests indicating possible rotator cuff pathology. He will be discharged to an independent [facility] and was referred to follow up with his physician. Plan of Care PT Services Indicated No
== END 2023-12-25 14:12 | disposition home or self-care (01) ==
LOC: CHSPT 08:27
PROVIDERS: PCP Family Medicine; Visit Provider Family Medicine
DX: M25.511 Pain in right shoulder (principal)
CPT/HCPCS: 97014; 97110; 97140; 97161; G0283

== ENCOUNTER 2023-11-09 14:39 | Outpatient (CLI) | payer MEDICARE, OTHER, SELFPAY ==
--- NOTE | 2023-11-09 15:45 | PC.NURSE ---
Patient arrived from MD office for SS Enema. Enema administered by Eduardo Hodge RN. Patient tolerated well. Extra large soft formed stool observed.
== END 2023-11-09 14:40 | disposition home or self-care (01) ==
PROVIDERS: PCP Family Medicine; Visit Provider Family Medicine
DX: K59.00 Constipation, unspecified (principal)
CPT/HCPCS: 99211; G0463

== ENCOUNTER 2024-01-11 14:27 | Outpatient (CLI) | payer MEDICARE, OTHER, SELFPAY ==
--- NOTE | ~2024-01-11 | XR_ITS ---
XR foot LT min 3V DATE: 01/11/2024 14:45 INDICATION: Pain/lump at proximal fourth-fifth metatarsal area TECHNIQUE: 4 views COMPARISON: None FINDINGS: Moderate plantar and mild posterior calcaneal enthesopathy. There is narrowing at multiple interphalangeal joints consistent with osteoarthritis. No fracture or dislocation, periosteal reaction or bone destruction. IMPRESSION: Moderate plantar and mild posterior calcaneal enthesopathy Osteoarthritic change at the interphalangeal joints Reviewed, dictated and finalized at location B.
== END 2024-01-11 14:28 | disposition home or self-care (01) ==
LOC: CHSIMG 14:30
PROVIDERS: PCP Family Medicine; Visit Provider Family Medicine
DX: M79.672 Pain in left foot (principal); M77.32 Calcaneal spur, left foot
CPT/HCPCS: 73630

== ENCOUNTER 2025-03-08 07:53 | Emergency (ER) | payer MEDICARE, OTHER, SELFPAY ==
--- NOTE | ~2025-03-08 | CT_ITS ---
EXAMINATION: CT abdomen pelvis wo con DATE: 03/08/2025 08:46 INDICATION: Hematuria TECHNIQUE: Computed tomography (CT) of the abdomen and pelvis was performed without intravenous contr ast. Automated exposure control and iterative reconstruction technique were employed. The dose-length product was 406.56 mGy-cm. COMPARISON: None FINDINGS: Air bronchograms extend through approximately 2.5 x 3.5 cm region of somewhat nodular consolidation a nd groundglass opacity at the basilar left lower lobe. Small calcified nodule at the right lower lobe consistent with old granulomatous disease. Heart size is normal. Atherosclerotic coronary artery lisa cific lesion. No pericardial or pleural effusion. Liver, gallbladder, spleen, pancreas, bilateral adr enal glands and right kidney are normal. 2.3 cm left renal cyst. No urolithiasis or hydronephrosis. B ladder is unremarkable. Prostatomegaly measuring 5.4 x 4.2 cm. A few sigmoid diverticula without danielle cent inflammatory stranding to suggest diverticulitis. Small bowel and appendix are normal. No free i ntraperitoneal gas or fluid. No pathologically enlarged abdominal or pelvic lymphadenopathy. Moderate to severe lower lumbar facet osteoarthritis and mild to moderate osteoarthritis at the bilateral hip and sacral iliac joints. IMPRESSION: 1. 3.5 x 2.5 cm region of consolidation in the left lower lobe which appears more likely related to p neumonia than malignancy. Correlate clinically and recommend follow-up with low-dose chest CT in 2-4 weeks to document resolution/appropriate evolution. 2. No urolithiasis or acute intra-abdominal/pelvic process. Reviewed, dictated and finalized at location [facility]. IMPRESSION: 1. 3.5 x 2.5 cm region of consolidation in the left lower lobe which appears mo re likely related to pneumonia than malignancy. Correlate clinically and recomm end follow-up with low-dose chest CT in 2-4 weeks to document resolution/approp riate evolution. 2. No urolithiasis or acute intra-abdominal/pelvic process.
[2025-03-08 07:55] VITALS: BP 124/82; PULSE 73; RESP 14; TEMP 36.6; O2SAT 98
--- OUTSIDE RECORDS SUMMARY | 2025-03-08 07:59 | XMS_ITS | Clinical Summary ---
Author Organization [facility] Address [address] [place] [address] Phone Care Team Providers Care Roving Department End Finder Name Role Phone Riley Davis MD Primary Care Provider [phone] Allergies No known active allergies Medications losartan (COZAAR) 25 MG Tablet Take 12.5 mg by mouth daily. Active tamsulosin (FLOMAX) 0.4 MG CapsuleIndicatio ns:takes on some days Take 0.4 mg by mouth as needed. Indications : takes on some days Active finasteride (PROSCAR) 5 MG Tablet Take 5 mg by mouth daily. Active ALPRAZolam (XANAX) 0.5 MG Tablet Take 0.5 mg by mouth 3 times daily as needed. Active atorvastatin (LIPITOR) 40 MG Tablet Take 40 mg by mouth daily. Active metFORMIN (GLUCOPHAGE) 500 MG Tablet Take 1,000 mg by mouth nightly. Active loratadine (CLARITIN) 10 MG Tablet Take 10 mg by mouth daily as needed. Active Active Problems No known active problems Family History Medical History Relation Name Comments Alcohol Abuse Father Cancer Father skin Coronary Artery Disease Mother Diabetes Mother Relation Name Status Comments Father Mother Alive Social History Tobacco Use Types Packs/Day Years Used Date Smoking Tobacco: Former Cigarettes 1977 Smokeless Tobacco: Never Tobacco Cessation:Counseling Given: Not Answered Alcohol Use Standard Drinks/Week Comments Not Currently 0 (1 standard drink = 0.6 oz pur e alcohol) Sexually Active Control Partners Comments Yes Female Sex and Gender Information Value Date Recorded Sex Assigned at Not on file Legal Sex Male 9:33 PM CDT Gender Identity Not on file Sexual Orientation Not on file Last Filed Vital Signs Vital Sign Reading Time Taken Comments Blood Pressure 122/64 07/02/2023 1:44 PM CDT Pulse 61 07/02/2023 1:44 PM CDT Temperature 36.2 C (97.2 F) 07/02/2023 1:44 PM CDT Respiratory Rate 16 07/02/2023 1:44 PM CDT Oxygen Saturation 97% 07/02/2023 1:44 PM CDT Inhaled Oxygen Concentration - - Weight 76.2 kg (168 lb) 06/22/2023 9:00 AM CDT Height 177.8 cm (5' 10) 06/22/2023 9:00 AM CDT Body Mass Index 24.11 06/22/2023 9:00 AM CDT Plan of Treatment Health Maintenance Due Date Last Done Comments Hepatitis C Virus (HCV) Screening 1945 Zoster Immunization (2 of 2) 07/04/2021 05/09/2021 Respiratory Syncytial Virus (RSV) Immunization (Adult) (1 - 1-dose 75+ series) 2022 Influenza Immunization (#1) 2024 100 01/2021, 07/12/2020, 07/21/2019, Additional history exists SARS-COV-2 Immunization ( season) 2024 10/17/2021, 01/21/2021, 12/24/2020 DTaP/Tdap/Td Immunization Discontinued 08/14/2020, TdaP Immunization Completed 08/14/2020, 03/05/2014 Pneumococcal Immunization (50+ years) Completed 02/02/2023, 09/17/2015, 03/11/2014 Hepatitis B Immunization Aged Out No longer eligible based on patient's age to complete this topic Meningococcal Immunization (ACWY) Aged Out No longer eligible based on patient's age to complete this topic Rotavirus Immunization Aged Out No lo nger eligible based on patient's age to complete this topic Medical Devices Implanted Type Area Home Health Speech Therapist Device Identifier Shelf Expiration Date Model / Serial / Lot [employer] 1 Piece Iol Implanted:Qty: 1 on 04/30/2023 by Des Brandon MD at [facility] Right: Eye [employer] 03/13/2026 [id number] / [id number] / [id number] Left Lens Implanted:Qty: 1 on 07/02/2023 by Des Brandon MD at [facility] Left: Eye [employer] 09/27/2025 [id number] / [id number] / [id number] Insurance MEDICARE [employer] SUP Care Teams Roving Department End Finder Relationship Specialty Start Date End Date Riley Davis MD [address] [place] [address] PCP - General Pediatrics 04/30/23
--- NOTE | 2025-03-08 08:03 | ED.MALEGU ---
HPI - Male Genitourinary General Chief complaint: Urogenital-Male Stated complaint: urine frequency Source: patient Mode of arrival: ambulatory Limitations: no limitations History of Present Illness HPI Narrative: Patient is a 79-year-old male with burning on urination with some hesitancy and decreased output over the past 2 days. No recent instrumentation. No Hutson. No fever or chills. No nausea vomiting or diarrhea. Patient had prostate cancer 10 years ago and just monitors without any treatment. MD Complaint: dysuria Onset (ago): day(s) ( Two) Duration: constant Location: penis Radiation: penis Severity: mild Severity scale (1-10): 3 Quality: burning and sharp Relieving factors: none Exacerbating factors: urination Context: other ( patient has recent history of 2 days burning on urination and some decreased urination and hesitancy.) Associated symptoms: Reports denies other symptoms Related Data Home Medications ?Medication ?Instructions ?Recorded ?Confirmed ?Last Taken ?Type atorvastatin 40 mg tablet 40 mg PO HS 08/14/20 11/09/23 04/29/22 History finasteride 5 mg tablet 5 mg PO DAILY 08/14/20 11/09/23 04/29/22 History losartan 25 mg tablet 12.5 mg PO DAILY 08/14/20 11/09/23 04/29/22 History metformin 500 mg tablet 1,000 mg PO BID 08/14/20 11/09/23 04/29/22 History Allergies Allergy/AdvReac Type Severity Reaction Status Date / Time No Known Allergies Allergy Verified 03/08/25 08:01 Review of Systems Review of Systems: All systems reviewed & are unremarkable except as noted in HPI and below Constitutional: Constitutional: Reports no additional constitutional complaints Eyes: Eyes: Reports no additional eye complaints ENT: Reports system reviewed and no additional complaints, except as documented Cardiovascular: Cardiovascular: Reports no additional cardiovascular complaints Respiratory: Respiratory: Reports no additional respiratory complaints Gastrointestinal: Gastrointestinal: Reports no additional gastrointestinal complaints Genitourinary: Genitourinary: Reports no additional male genitourinary complaints Musculoskeletal: Musculoskeletal: Reports no additional musculoskeletal complaints Integumentary/Breasts: Skin/Breast: Reports system reviewed and no additional complaints, except as docu Neurologic: Reports system reviewed and no additional complaints, except as documented Psychiatric: Psychiatric: Reports no additional psychiatric complaints Endocrine: Endocrine: Reports no additional endocrine complaints Hematologic/Lymphatic: Hematologic/Lymphatic: Reports no additional hematologic/lymphatic complaints Allergic/Immunologic: Allergic/Immunologic: Reports no additional allergic/immunologic complaints [facility] Past Medical History Medical History Chest pain Prostate CA Osteoarthritis HTN (hypertension) Hyperlipidemia Diabetes mellitus Family History Family History Other Diabetes mellitus Social History Social History Smoking packs per day: 0.5 Smoking cigarettes per day: 10.0 Years smoked: 20 Smoking pack-years: 10.00 Smoking status: Former smoker Tobacco type: cigarettes Alcohol intake: never Substance use: never Substance use type: does not use Living arrangements: with family Spiritual care concerns: No Exam Const: General: healthy appearing Nutritional Appearance: well nourished Limitations: no limitations HENMT: Head: normal to inspection Ears: TM's normal bilaterally Face/Nose/Sinus: Normal external nose present Eyes: Conjunctivae: conjunctivae normal Pupils: Equal, round and reactive pupils present EOM: EOMs intact bilaterally Neck: Neck: normal visual inspection Chest: Chest palpation & inspection: normal inspection of the chest Resp: Effort & Inspection: normal respiratory effort and not labored Auscultation: clear to auscultation bilaterally and no crackles Cardio: Rate: regular rate Rhythm: regular rhythm Heart sounds: no murmurs GI: Inspection: non-distended GI Palp: Yes Soft to palpation and No Tenderness to palpation present (GI) Auscultation: normal bowel sounds : General: Yes bladder normal to palpation Back/Spine/Pelvis: Back: no CVA tenderness Skin: General skin exam: normal color Rashes: no rashes Wounds: no wounds Neuro: General: patient oriented x3 and moves all extremities Cranial nerves: Yes CN's II-XII intact bilaterally Speech: normal speech Gait exam (Neuro): Normal gait present Extrem: General: normal to inspection Psych: Mental Status: mental status grossly normal Affect: normal affect Attitude: cooperative Course Vital Signs Vital signs: Vital Signs Temperature 36.6 C 03/08/25 07:55 Pulse Rate 73 03/08/25 07:55 Respiratory Rate 14 03/08/25 07:55 Blood Pressure 124/82 03/08/25 07:55 Pulse Oximetry 98 03/08/25 07:55 Oxygen Delivery Room Air 03/08/25 07:55 Temperature 36.6 C 03/08/25 07:55 Pulse Rate 73 03/08/25 07:55 Respiratory Rate 14 03/08/25 07:55 Blood Pressure 124/82 03/08/25 07:55 Pulse Oximetry 98 03/08/25 07:55 Oxygen Delivery Room Air 03/08/25 07:55 MDM - Male Genitourinary MDM Narrative Medical decision making narrative: Patient is a 79-year-old male with dysuria for the past 2 days. Will start with a urinalysis. Likelihood of prostatitis present. I did not do rectal with concerns for prostate cancer. He needs to see the urologist as soon as possible to review his prostate cancer. Lab Data Attestation: I reviewed the patient's lab results. 03/08/25 08:49 03/08/25 08:49 Labs: Lab Results 03/08/25 03/08/25 Range/Units 08:03 08:49 WBC 9.6 (4.8-10.8) K/mm3 RBC 4.47 L (4.70-6.10) M/mm3 Hgb 13.1 (12.4-15.3) g/dL Hct 40.0 (37.0-46.0) % MCV 89.5 (78.0-102.0) fL MCH 29.3 (27.0-31.0) pg MCHC 32.8 (32-36) g/dL RDW 12.0 (11.6-14.4) % Plt Count 230 (150-420) K/mm3 MPV 8.7 (8.7-11.0) fl Immature Gran % (Auto) 0.3 H (0.0-0.0) % Neut % (Auto) 65.0 (50.0-70.0) % Lymph % (Auto) 19.5 (18.0-42.0) % Upson % (Auto) 10.6 (2.0-11.0) % Eos % (Auto) 3.8 (1.0-6.0) % Baso % (Auto) 0.8 (0.0-1.0) % Lymph # (Auto) 1.86 (1.10-4.50) K/mm3 Upson # (Auto) 1.01 H (0.10-0.90) K/mm3 Eos # (Auto) 0.36 (0.02-0.50) K/mm3 Baso # (Auto) 0.08 (0.00-0.10) K/mm3 Abs Immat Gran (auto) 0.03 H (0.00-0.00) K/mm3 Absolute Neuts (auto) 6.22 (1.70-7.20) K/mm3 Absolute Nucleated RBC 0.00 (0.00-0.00) K/mm3 Nucleated RBC % 0.0 (0-0.0) % Sodium 138 (137-145) mmol/L Potassium 4.1 (3.4-5.0) mmol/L Chloride 105 (98-107) mmol/L Carbon Dioxide 26 (22-30) mmol/L Anion Gap 7 (4-12) mmol/L BUN 17 (9-20) mg/dL Creatinine 0.99 (0.7-1.3) mg/dL Estim Creat Clear Calc 57 ml/min Estimated GFR > 60 (59 - ) Glucose 129 H (65-110) mg/dL Calculated Osmolality 289 (285-295) mOsm/kg Calcium 8.7 (8.4-10.2) mg/dL Total Bilirubin 0.7 (0.2-1.3) mg/dL AST 30 (17-59) U/L ALT 26 (6-50) U/L Alkaline Phosphatase 144 H (38-126) U/L Total Protein 8.0 (6.3-8.2) g/dL Albumin 3.9 (3.5-5.1) g/dL Urine Color Light yellow (Yellow) Urine Appearance Clear (Clear) Urine pH 6.0 (5.0-8.0) Ur Specific Underwood 1.025 H (1.010-1.020) Urine Protein 2+ H (Negative) Urine Glucose (UA) Negative (Negative) Urine Ketones Trace H (Negative) Ur Blood (Man) 3+ H (Negative) Urine Nitrate Negative (Negative) Urine Bilirubin Negative (Negative) Urine Urobilinogen 0.2 (0.2-1.0) mg/dL Leukocyte Esterase Rfl Negative (Negative) JANICE/UL Urine RBC 21-50 H (0-2) /hpf Amorphous Sediment Heavy H (None) Urine Mucus Heavy H /lpf Imaging Data Attestation: I personally reviewed and interpreted this imaging study as follows: Radiologist's impression: CT scan of the abdomen pelvis shows IMPRESSION: 1. 3.5 x 2.5 cm region of consolidation in the left lower lobe which appears more likely related to pneumonia than malignancy. Correlate clinically and recommend follow-up with low-dose chest CT in 2-4 weeks to document resolution/appropriate evolution. 2. No urolithiasis or acute intra-abdominal/pelvic process. Discharge Plan Discharge Clinical Impression: Prostatitis Qualifiers: Prostatitis type: unspecified Qualified Code(s): N41.9 - Inflammatory disease of prostate, unspecified Hematuria Qualifiers: Hematuria type: unspecified type Qualified Code(s): R31.9 - Hematuria, unspecified Pneumonia Qualifiers: Pneumonia type: due to unspecified organism Laterality: left Lung location: lower lobe of lung Qualified Code(s): J18.9 - Pneumonia, unspecified organism Patient Disposition: Home Condition: Stable Instructions: Antibiotic Form, Prostatitis (ED), Bacterial Pneumonia (DC) Additional Instructions: please follow-up with the urologist to further review blood in the urine and history of prostate cancer. Patient Language: Polish Prescriptions: New levofloxacin 500 mg tablet 500 mg PO DAILY Qty: 10 0RF No Action atorvastatin 40 mg tablet 40 mg PO HS metformin 500 mg tablet 1,000 mg PO BID losartan 25 mg tablet 12.5 mg PO DAILY finasteride 5 mg tablet 5 mg PO DAILY hydrocodone-acetaminophen 7.5-325 mg tablet 1 tablet PO Q6H PRN (Reason: pain) Qty: 15 0RF Follow-up/Referrals: Riley Davis MD [Primary Care Provider] - Time of Disposition: 09:24
[2025-03-08 08:14] LABS: Add Urine Microscopic? YES; Appearance Urine Clear (Clear); Bilirubin Urine Negative (Negative); Blood Urine 3+ (Negative); Color Urine Light Yellow (Yellow); Glucose Urine UA Negative (Negative); Ketones Urine Trace (Negative); Leukocyte Esterase Ur Negative LEU/UL (Negative); Nitrate Urine Negative (Negative); Protein Urine 2+ (Negative); Specific Grav Ur 1.025 (1.010-1.020); Urobilinogen Urine 0.2 mg/dL (0.2-1.0)
[2025-03-08 08:22] LABS: Amorphous Sediment Urine Heavy; RBC Urine 21-50 /hpf (0-2)
[2025-03-08 08:23] LABS: Mucus Urine Heavy /lpf
--- OUTSIDE RECORDS SUMMARY | 2025-03-08 08:27 | XMS_ITS | Clinical Summary ---
Author Organization [facility] Address [address] [place] [address] Phone Care Team Providers Care Welder Metal Fab Name Role Phone Riley Davis MD Primary Care Provider [phone] Allergies No known active allergies Medications losartan [...] this topic Medical Devices Implanted Type Area Drop Pit Worker Device Identifier Shelf Expiration Date Model / Serial / Lot Frankie [employer] Tecnis 1 Piece Iol Implanted:Qty: 1 on 04/30/2023 by Des Brandon MD at [facility] Right: Eye [employer] 03/13/2026 [id number] / [id number] / [id number] Left Lens Implanted:Qty: 1 on 07/02/2023 by Des Brandon MD at [facility] Left: Eye [employer] 09/27/2025 [id number] / [id number] / [id number] Insurance MEDICARE [employer] MEDIC[employer] SUP Care Teams Welder Metal Fab Relationship Specialty Start Date End Date Riley Davis MD [address] [place] [address] PCP - General Pediatrics 04/30/23
[2025-03-08 08:57] LABS: Basophils Absolute Auto 0.08 K/mm3 (0.00-0.10); Basophils Percent Auto 0.8 % (0.0-1.0); Eosinophils Absolute Auto 0.36 K/mm3 (0.02-0.50); Eosinophils Percent Auto 3.8 % (1.0-6.0); Hemoglobin 13.1 g/dL (12.4-15.3); Immature Granulocyte Absolute 0.03 K/mm3 (0.00-0.00); Immature Granulocyte Percent A 0.3 % (0.0-0.0); Lymphocytes Absolute Auto 1.86 K/mm3 (1.10-4.50); Lymphocytes Percent Auto 19.5 % (18.0-42.0); Mean Corpuscular HGB Conc 32.8 g/dL (32-36); Mean Corpuscular Hemoglobin 29.3 pg (27.0-31.0); Mean Corpuscular Volume 89.5 fL (78.0-102.0); Mean Platelet Volume 8.7 fl (8.7-11.0); Monocytes Absolute Auto 1.01 K/mm3 (0.10-0.90); Monocytes Percent Auto 10.6 % (2.0-11.0); Neutrophils Absolute Auto 6.22 K/mm3 (1.70-7.20); Platelet Count Result 230 K/mm3 (150-420); Red Blood Count 4.47 M/mm3 (4.70-6.10); White Blood Count 9.6 K/mm3 (4.8-10.8)
[2025-03-08 09:10] LABS: Alanine Aminotransferase 26 U/L (6-50); Albumin Level 3.9 g/dL (3.5-5.1); Alkaline Phosphatase 144 U/L (38-126); Anion Gap 7 mmol/L (4-12); Aspartate Amino Transferase 30 U/L (17-59); Bilirubin,Total 0.7 mg/dL (0.2-1.3); Blood Urea Nitrogen 17 mg/dL (9-20); Calcium 8.7 mg/dL (8.4-10.2); Carbon Dioxide 26 mmol/L (22-30); Chloride 105 mmol/L (98-107); Estimated CRCL calculation 57 ml/min; Estimated Glomerular Filt Rate > 60; Glucose 129 mg/dL (65-110); Osmolality Calculated 289 mOsm/kg (285-295); Potassium 4.1 mmol/L (3.4-5.0); Sodium 138 mmol/L (137-145)
[2025-03-08 09:35] VITALS: PULSE 68; RESP 16
== END 2025-03-08 09:35 | disposition home or self-care (01) ==
PROVIDERS: Emergency Provider Emergency Medicine; PCP Family Medicine
DX: N41.9 Inflammatory disease of prostate, unspecified (principal); R31.9 Hematuria, unspecified; E78.5 Hyperlipidemia, unspecified; E11.9 Type 2 diabetes mellitus without complications; I10 Essential (primary) hypertension; Z85.46 Personal history of malignant neoplasm of prostate; Z87.891 Personal history of nicotine dependence
CPT/HCPCS: 36415; 74176; 80053; 81001; 85025; 99283

== ENCOUNTER 2025-03-30 07:57 | Outpatient (CLI) | payer MEDICARE, OTHER, SELFPAY ==
--- NOTE | ~2025-03-30 | CT_ITS ---
CT Scan of the Chest without Contrast: Clinical Indication: Chest infection Technique: Contiguous sections were acquired throughout the chest without intravenous contrast. Dose reduction technique was used on this scan by utilizing automated exposure control and iterative recon struction technique. The dose-length product (DLP) was 215.13 mGy-cm. Findings: There is no evidence of any significant mediastinal, hilar or axillary lymphadenopathy. Coronary courtney ry calcifications are present. There is no evidence of pleural or pericardial effusion. There is a 2.3 cm irregular nodule or consolidation at the left lung base. Images through the upper abdomen reveal no abnormalities. Impression: 2.3 cm irregular nodule or consolidation or lung base, more confluent as compared to prior exam from 03/08/2025. This could reflect pneumonia versus possibly neoplasm. Correlate clinically. Consider addit ional follow-up exam in 1-3 months versus tissue sampling. Reviewed, dictated and finalized at [facility]. Impression: 2.3 cm irregular nodule or consolidation or lung base, more confluent as compar ed to prior exam from 03/08/2025. This could reflect pneumonia versus possibly ne oplasm. Correlate clinically. Consider additional follow-up exam in 1-3 months versus tissue sampling.
== END 2025-03-30 07:58 | disposition home or self-care (01) ==
LOC: CHSIMG 07:58
PROVIDERS: PCP Family Medicine; Visit Provider Family Medicine
DX: R91.8 Other nonspecific abnormal finding of lung field (principal)
CPT/HCPCS: 71250

== ENCOUNTER 2025-06-10 12:41 | Outpatient (CLI) | payer MEDICARE, OTHER, SELFPAY ==
--- NOTE | ~2025-06-10 | CT_ITS ---
Exam: CT chest without contrast Clinical History: [Solitary pulmonary nodule ] Comparison: [ CT chest 03/30/2025] Technique: Multiple axial CT images of the chest without with IV contrast. Sagittal and coronal reformatted images were obtained. FINDINGS: Lungs and pleura: [ No pneumothorax. No pleural effusion. No free air the diaphragm.] Tracheobronchial tree is patent. Near complete interval resolution of the consolidation in the left lung base. Mediastinum and pulmonary piter: [ No mass or adenopathy.] Axillary/intramammary and supraclavicular: [ No mass or adenopathy.] Heart and great vessels: [ Normal heart size.[ [ No pericardial effusion.] [ No aneurysm.] There are coronary artery calcifications. Chest Wall: [ Unremarkable.] Upper Abdomen: No significant change. Osseous structures: [ No acute fracture or destructive lesion.] [ Multilevel degenerative change in the visualized spine.] Additional findings: [ None of significance.] IMPRESSION: 1. Near complete interval resolution of the previously described 2.3 cm irregular consolidation in the left lung base. 2. No new focal pulmonary consolidation. Reviewed, dictated and finalized at location Q. IMPRESSION: 1. Near complete interval resolution of the previously described 2.3 cm irregul ar consolidation in the left lung base. 2. No new focal pulmonary consolidation.
--- OUTSIDE RECORDS SUMMARY | 2025-06-10 13:50 | XMS_ITS | Encounter Summary ---
Author Organization [facility] Address [address] [place] [address] Care Team Providers Care Ict Business Development Manager Name Role Phone Riley Davis MD Primary Care Provider [phone] Isma Saavedra MD Unavailable [phone] Che Navas APRN, SAS ADMINISTRATOR-C Unavailable Graham Rock MD Unavailable Encounter Details Date Type Department Care Team (Late st Contact Info) Description 12/22/2017 Abstract [facility] [address] [place], [place] [id number] , Generic MD Zachary Social History Tobacco Use Types Packs/Day Years Used Date Smoking Tobacco: Never Sex and Gender Information Value Date Recorded Sex Assigned at Male 04/21/2025 12:18 PM CDT Legal Sex Male 10:51 PM CDT Gender Identity Not on file Sexual Orientation Not on file documented as of this encounter Plan of Treatment Not on file documented as of this encounter Visit Diagnoses Not on filedocumented in this encounter Care Teams Ict Business Development Manager Relationship Specialty Start Date End Date Riley Davis MD [address] [place] [address] PCP - General FAMILY PRACTICE 12/17/18 Isma Saavedra MD [address] [place] [phone] [place] Vis[employer] Assistant CARDIOVASCULAR DISEASE 12/17/18 11/23/24 Che Navas APRN, SAS ADMINISTRATOR-C [address] [facility] [address] [place] [address] NURSE PRACTITIONER 07/09/20 Graham Rock MD [address] [facility] [address] [place] [address] Physician INTERVENTIONAL CARDIOLOGY 12/12/24 documented as of this encounter
--- OUTSIDE RECORDS SUMMARY | 2025-06-10 13:50 | XMS_ITS | Encounter Summary ---
Author Organization [facility] Address [address] [place] [address] Care Team Providers Care Public Interviewer Name Role Phone Riley Davis MD Primary Care Provider [phone] Isma Saavedra MD Unavailable [phone] Che Navas APRN, BLINDMAKER-C Unavailable [phone] Graham Rock MD Unavailable [phone] Encounter Details Date Type Department Care Team (Late st Contact Info) Description 12/25/2018 Abstract [facility] [address] [place] [address] Abstract, Doc [facility] Social History Tobacco Use Types Packs/Day Years Used Date Smoking Tobacco: Never Alcohol Use Standard Drinks/Week Comments No 0 (1 standard drink = 0.6 oz pur e alcohol) AUDIT-C Answer Date Recorded Frequency of Alcohol Consumption Never 12/25/2018 Average Number of Drinks Not on file 019 Frequency of Binge Drinking Not on file 12/07 Sex and Gender Information Value Date Recorded Sex Assigned at Male 04/21/2025 12:18 PM CDT Legal Sex Male 10:51 PM CDT Gender Identity Not on file Sexual Orientation Not on file documented as of this encounter Functional Status documented as of this encounter Plan of Treatment Not on file documented as of this encounter Visit Diagnoses Not on filedocumented in this encounter Care Teams Public Interviewer Relationship Specialty Start Date End Date Riley Davis MD [address] [place] [address] PCP - General FAMILY PRACTICE 12/17/18 Isma Saavedra MD [address] [place] [phone] [place] Lead Web Developer CARDIOVASCULAR DISEASE 12/17/18 11/23/24 Che Navas, REFRACTORY SPECIALIST, BLINDMAKER-C [address] [address] NURSE PRACTITIONER 07/09/20 Graham Rock MD [address] [address] Physician INTERVENTIONAL CARDIOLOGY 12/12/24 documented as of this encounter
--- OUTSIDE RECORDS SUMMARY | 2025-06-10 13:50 | XMS_ITS | Clinical Summary ---
Author Organization [facility] Address [address] [place] [address] Phone Care Team Providers Care Carton Inspector Name Role Phone Riley Davis MD Primary Care Provider [phone] Allergies No known active allergies Medications losartan [...] 1-dose 75+ series) 2022 Influenza Immunization (#1) 2025 100 01/2021, 07/12/2020, 07/21/2019, Additional history exists SARS-COV-2 Immunization (2024- season) 2025 10/17/2021, 01/21/2021, 12/24/2020 DTaP/Tdap/Td Immunization Discontinued 08/14/2020, TdaP Immunization Completed 08/14/2020, 03/05/2014 Pneumococcal Immunization (50+ years) Completed 02/02/2023, 09/17/2015, 03/11/2014 Hepatitis B Immunization Aged Out No longer eligible based on patient's age to complete this topic Human Papillomavirus (HPV) Immunization Aged Out No longer eligible based on patient's age to complete this topic Meningococcal Immunization (ACWY) Aged Out No longer eligible based on patient's age to complete this topic Rotavirus Immunization Aged Out No lo nger eligible based on patient's age to complete this topic Medical Devices Implanted Type Area Internal Audit Consultant Device Identifier Shelf Expiration Date Model / Serial / Lot [employer]obi[employer] Tecnis 1 Piece Iol Implanted:Qty: 1 on 04/30/2023 by Des Brandon MD at [facility] Right: Eye [employer] 03/13/2026 [id number] / [id number] / [id number] Left Lens Implanted:Qty: 1 on 07/02/2023 by Des Brandon MD at [facility] Left: Eye [employer] 09/27/2025 DCB00 / [id number] / [id number] Insurance MEDICARE [employer] MEDICARE SUP Care Teams Carton Inspector Relationship Specialty Start Date End Date Riley Davis MD [address] [place] [address] PCP - General Pediatrics 04/30/23
--- OUTSIDE RECORDS SUMMARY | 2025-06-10 13:50 | XMS_ITS | Clinical Summary ---
Author Organization [facility] Address [address] [place] [address] Care Team Providers Care Temporary Help Agency Referral Clerk Name Role Phone Riley Davis MD Primary Care Provider [phone] Che Navas APRN, ENVIRONMENTAL ENGINEERING AIDE-C Unavailable Graham Rock MD Unavailable [phone] Allergies Active Allergy Reactions Criticality Noted Date Comments Hydrocodone Anxiety Low 01/01/2024 Medications finasteride 5 MG tablet Take 1 tablet (5 mg total) by mouth daily. Active atorvastatin 40 MG tablet Take 1 tablet (40 mg total) by mouth nightly at bedtime. at bedtime. 1 9 Active metFORMIN 500 MG tablet Take 2 tablets (1,000 mg total) by mouth daily. 2 Active ONETOUCH ULTRA test strip USE TO TEST BLOOD SUGAR ONCE DAILY E11.40 2 Active Lancets (ONETOUCH DELICA PLUS [id number]) Misc USE TO CHECK BLOOD SUGAR ONCE DAILY 2 Active nitroglycerin (NITROSTAT) 0.[address] 1 TABLET BY BUCCAL ROUTE 5-10 MINUTES PRIOR TO ACTIVITIES WHICH MIGHT PRECIPITATE AN ATTACK 2 Active tamsulosin (FLOMAX) 0.4 MG Cap Take 1 capsule (0.4 mg total) by mouth as needed. 2 Active loratadine (CLARITIN) 10 MG tablet Take 1 tablet (10 mg total) by mouth daily as needed for Allergies. Active aspirin EC (ECOTRIN) 81 MG tablet Take 1 tablet (81 mg total) by mouth daily. 90 tablet 3 4 Active losartan (COZAAR) 25 MG tablet TAKE 1/2 TABLET BY MOUTH DAILY 45 tablet 5 Active Active Problems Problem Noted Date Diagnosed Date Rotator cuff arthropathy of right shoulder 01/08 Rotator cuff arthropathy, left 11/14/2022 Hyperlipidemia 07/16/2020 HTN (hypertension) Syncope Obstructive sleep apnea Prostate cancer ([facility]) Dyspnea Diabetes ([facility]) Coronary artery disease Overview (12/27/2018): with left jaw pain Encounters Date Type Department Care Team Description 05/21/2025 9:34 AM CDT - 05/21/2025 11:59 PM CDT Hospital Encounter [facility] [address] [place] [place] [address] Graham Rock MD Discharge Disposition: Home or Self Care (Routine Discharge) 05/21/2025 Travel 04/22/2025 Results Follow-Up [facility] [address] [address] Evelyn Vallejo MA LIPID PANEL, USE ECHOCARDIOGRAM 04/21/2025 1:30 PM CDT - 04/21/2025 11:59 PM CDT Hospital Encounter [facility] [address] [place] [address] Graham Rock MD Discharge Disposition: Home or Self Care (Routine Discharge) 04/21/2025 12:45 PM CDT Office Visit [facility] [address] [place] [address] Graham Rock MD Coronary Artery Disease 04/21/2025 12:21 PM CDT - 04/21/2025 1:29 PM CDT Hospital Encounter [facility] [address] [facility] [address] [place] [address] Graham Rock MD Discharge Disposition: Home or Self Care (Routine Discharge) 04/21/2025 Telephone [facility] [address] [place] [address] Graham Rock MD Schedule Test 04/21/2025 Travel 04/20/2025 Telephone [facility] [address] [place] [address] Graham Rock MD Appointment Reminder 04/09/2025 Orders Only [facility] [address] [place] [address] Graham Rock MD from Last 3 Months Family History Medical History Relation Comments Alcohol Abuse Father Diabetes Mother Relation Status Comments Father Mother Social History Tobacco Use Types Packs/Day Years Used Date Smoking Tobacco: Former Smokeless Tobacco: Never Tobacco Cessation:Counseling Given: Not Answered Alcohol Use Standard Drinks/Week Comments No 0 [...] on file Sexual Orientation Not on file Occupation Industry Job Start Date Job End Date retired Not on file Not on file Not on file Last Filed Vital Signs Vital Sign Reading Time Taken Comments Blood Pressure 127/73 04/21/2025 12:57 PM CDT Pulse 67 04/21/2025 12:56 PM CDT Temperature - - Respiratory Rate 18 04/21/2025 12:56 PM CDT Oxygen Saturation 98% 04/21/2025 12:56 PM CDT Inhaled Oxygen Concentration - - Weight 72.6 kg (160 lb) 04/21/2025 12:56 PM CDT Height 175.3 cm (5' 9) 04/21/2025 12:56 PM CDT Body Mass Index 23.63 04/21/2025 12:56 PM CDT Plan of Treatment Health Maintenance Due Date Last Done Comments ASCVD Statin 1945 Kidney Health Evaluation 1945 Diabetes: Retinopathy Eye Exam 1965 Hepatitis C 1965 DTaP, Tdap and Td Vaccines ( 1 - Tdap) 1966 Zoster Vaccines (1 of 2) 1997 Annual Medicare Wellness Visit 2012 Pneumococcal Vaccine: 50+ Years (2 of 2 - PPSV23) 11/12/2015 09/17/2015 RSV Immunization or 60+ Years (1 - 1-dose 75+ series) 2022 COVID-19 Vaccine (1 - 2023-2 5 season) 2024 Hemoglobin A1C 06/15/2024 12/14/2023 Lipid Panel 04/21/2026 04/21/2025, 12/14/2023 Meningococcal B Vaccine Aged Out No l onger eligible based on patient's age to complete this topic Meningococcal Vaccine Aged Out No karina lakisha eligible based on patient's age to complete this topic RSV Immunizations Under 20 Months Aged Out No longer eligible b ased on patient's age to complete this topic Procedures Procedure Name Priority Date/Time Associated Diagnosis Comments USE ECHOCARDIOGRAM Routine 05/21/2025 10 :44 AM CDT Primary hypertension Coronary artery disease involving cachil dehe coronary artery of cachil dehe heart without angina pectoris LIPID PANEL Routine 04/21/2025 1:39 PM CDT Primary hypertension ECG 12-LEAD Routine 04/21/2025 12:27 PM CDT Essential hypertension Hypercholesterolemia HEMOGLOBIN, GLYCOSYLATED Routine 12/14/2023 from Last 3 Months or Most Recently Relevant to Health Maintenance Results * USE ECHOCARDIOGRAM (05/21/2025 10:44 AM CDT) Anatomical Region Laterality Modality Cardiac Ultrasound 05/21/2025 10:1 9 AM CDT Narrative 05/22/2025 9:53 AM CDT Echocardiography Report Pat.Name: Aisha Santana Pat.ID: [id number] St.Date: 05/21/2025 Refer.MD: Reji, [facility] Exam Time: 10:19:00 AM Study Type:ERJI Height: 70 in Weight: 160 lb BSA: 1.9 m2 Age: 2 1945,79Y Sex: M Sonogrphr: Sf Pat. Stat.:Outpatient Reason for Study:Primary hypertension, Coronary artery disease involving cachil dehe coronary artery of cachil dehe heart without angina pectoris Procedures: Study performed at [place], [place] and interpreted by [facility]. 2D, M-mode, Doppler, Color Flow ++++++++++++++++++++++++++++++++++++ SUMMARY: ++++++++++++++++++++++++++++++++++++ The left ventricular systolic function is normal. Left ventricular diastolic function is abnormal (grade 1 - impaired relaxation). The right ventricular function is normal. There is trace mitral regurgitation. ++++++++++++++++++++++++++++++++++++ FINDINGS: ++++++++++++++++++++++++++++++++++++ LV: The left ventricular size is normal. The left ventricular systolic function is normal. Estimated left ventricular ejection fraction is 55-60%. Left ventricular diastolic function is abnormal (grade 1 - impaired relaxation). RV: The right ventricle size is normal. The right ventricular function is normal. LA: Left atrial size is normal. RA: The right atrial size is normal. AMEE: No evidence of pericardial effusion. AO: Aorta is normal. SVn: Inferior vena cava is normal. AV: The aortic valve is trileaflet. There is no aortic stenosis. There is no evidence of aortic regurgitation. MV: The mitral valve is structurally normal. There is trace mitral regurgitation. PV: The pulmonic valve is normal There is trace pulmonic regurgitation TV: The tricuspid valve appears structurally normal. There is trace tricuspid regurgitation. <Electronic Signature> 05/22/2025 09:53 AM Graham Rock M.D. Procedure Note Graham Rock MD - 05/22/2025 Echocardiography Report Pat.Name: Aisha Santana Pat.ID: [id number] .Date: 05/21/2025 Refer.MD: Reji, [facility] Exam Time: 10:19:00 AM Study Type:REJI Height: 70 in Weight: 160 lb BSA: 1.9 m2 Age: 2 1945,79Y Sex: M Sonogrphr: Pat. Stat.:Outpatient Reason for Study:Primary hypertension, Coronary artery disease involving cachil dehe coronary artery of cachil dehe heart without angina pectoris Procedures: Study performed at [place], [place] and interpreted by [facility]. 2D, M-mode, Doppler, Color Flow ++++++++++++++++++++++++++++++++++++ SUMMARY: ++++++++++++++++++++++++++++++++++++ The left ventricular systolic function is normal. Left ventricular diastolic function is abnormal (grade 1 - impaired relaxation). The right ventricular function is normal. There is trace mitral regurgitation. ++++++++++++++++++++++++++++++++++++ FINDINGS: ++++++++++++++++++++++++++++++++++++ LV: The left ventricular size is normal. The left ventricular systolic function is normal. Estimated left ventricular ejection fraction is 55-60%. Left ventricular diastolic function is abnormal (grade 1 - impaired relaxation). RV: The right ventricle size is normal. The right ventricular function is normal. LA: Left atrial size is normal. RA: The right atrial size is normal. AMEE: No evidence of pericardial effusion. AO: Aorta is normal. SVn: Inferior vena cava is normal. AV: The aortic valve is trileaflet. There is no aortic stenosis. There is no evidence of aortic regurgitation. MV: The mitral valve is structurally normal. There is trace mitral regurgitation. PV: The pulmonic valve is normal There is trace pulmonic regurgitation TV: The tricuspid valve appears structurally normal. There is trace tricuspid regurgitation. <Electronic Signature> 05/22/2025 09:53 AM Graham Rock M.D. us Graham Rock MD ECHO Final Result * LIPID PANEL (04/21/2025 1:39 PM CDT) CHOLESTEROL 152 MG/DL 04/21/2025 8:48 PM CDT [facility] Comment:DESIRABLE: <200 TRIGLYCERIDES 84 MG/DL 04/21/2025 8:48 PM CDT [facility] Comment:<150 NORMAL HDL 61 >39 MG/DL 04/21/2025 8:48 PM CDT [facility] LDL-C 74 MG/DL 04/21/2025 8:48 PM CDT [facility] Comment:<100 OPTIMAL VLDL CALCULATION 17 MG/DL 04/21/20 8:48 PM CDT [facility] Comment:REFERENCE RANGE NOT ESTABLISHED CHOL/HDL RATIO 2.5 04/21/2025 8:48 PM CDT [facility] Comment:REFERENCE RANGE NOT ESTABLISHED LDL/HDL 1.2 04/21/2025 8:48 PM CDT [facility] Comment:REFERENCE RANGE NOT ESTABLISHED NON HDL CHOLESTEROL 91 MG/DL 04/21/2025 8:48 PM CDT [facility] Comment:REFERENCE RANGE NOT ESTABLISHED 04/21/2025 1:39 PM CDT us Graham Rock MD LABORATORY Final Result [facility] [address] [place] [address], [id number] * ECG 12 lead (HOSPITAL PERFORMED ONLY) (04/21/2025 12:27 PM CDT) 04/21/2025 12:2 7 PM CDT Narrative [facility] - 04/22/2025 9:49 AM CDT [address] 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1945 Requested By: GRAHAM ROCK Order Number: [id number] Reading MD: Graham Rock Measurements Intervals [place] Rate: 66 P: 35 NM: 173 QRS: 37 QRSD: 97 T: 68 QT: 400 QTc: 420 Interpretive Statements SINUS RHYTHM us Graham Rock MD ECG ORDERABLES Final Result [facility] * HEMOGLOBIN, GLYCOSYLATED (12/14/2023) HGB A1C 6.6 % Narrative Resulting Agency Comment [employer], [place], [place], [facility] us Riley Davis MD LABORATORY Final Result from Last 3 Months or Most Recently Relevant to Health Maintenance Insurance MEDICARE [email or web address] MEDICARE [employer] Care Teams Temporary Help Agency Referral Clerk Relationship Specialty Start Date End Date Riley Davis MD [address] [place] [address] PCP - General FAMILY PRACTICE 12/17/18 Che Navas, CRISTIAN, ENVIRONMENTAL ENGINEERING AIDE-C [address] [facility] [address] [place] [phone] NURSE PRACTITIONER 07/09/20 Graham Rock MD [address] [facility] [address] [place] [address] Physician INTERVENTIONAL CARDIOLOGY 12/12/24
--- OUTSIDE RECORDS SUMMARY | 2025-06-10 13:50 | XMS_ITS | Encounter Summary ---
Author Organization [facility] Address [facility] [place] [address] Care Team Providers Care Franchise Business Consultant Name Role Phone Riley Davis MD Primary Care Provider [phone] Che Navas APRN PENSIONS RETIREMENT PLAN SPECIALIST-C Unavailable Graham Rock MD Unavailable [phone] Encounter Details Date Type Department Care Team (Latest Contact Info) Description 04/22/2025 Results Follow-Up [facility] [place] [address] Evelyn Vallejo MA LIPID PANEL, USE ECHOCARDIOGRAM Social History Tobacco Use Types Packs/Day Years Used Date Smoking Tobacco: Former Smokeless Tobacco: Never Alcohol Use Standard Drinks/Week Comments [...] file Not on file Not on file documented as of this encounter Plan of Treatment Not on file documented as of this encounter Visit Diagnoses Not on filedocumented in this encounter Care Teams Franchise Business Consultant Relationship Specialty Start Date End Date Riley Davis MD [address] [place] [address] PCP - General FAMILY PRACTICE 12/17/18 Che Navas APRN, PENSIONS RETIREMENT PLAN SPECIALIST-C [address] [facility] [address] [place] [phone] NURSE PRACTITIONER 07/09/20 Graham Rock MD [address] [facility] [address] [place], [place] [address] Physician INTERVENTIONAL CARDIOLOGY 12/12/24 documented as of this encounter
== END 2025-06-10 12:42 | disposition home or self-care (01) ==
LOC: CHSIMG 12:44
PROVIDERS: PCP Family Medicine; Visit Provider Physician Assistant
DX: R91.1 Solitary pulmonary nodule (principal)
CPT/HCPCS: 71250